=== PATIENT | female | born 2000 | race Two or more races ===

== ENCOUNTER 2022-07-17 12:37 | Emergency (ER) | payer BC ==
[~2022-07-17] VITALS: Ht 129.5 cm; Wt 53.5 kg
== END 2022-07-17 21:31 | disposition home or self-care (01) ==
LOC: EMR PED 12:37
DX: T75.1XXA Unspecified effects of drowning and nonfatal submersion, initial encounter (principal); Y93.89 Activity, other specified; Y92.832 Beach as the place of occurrence of the external cause; Y99.9 Unspecified external cause status; F12.10 Cannabis abuse, uncomplicated